=== PATIENT | female | born 1950 | race American Indian/Alaskan Native ===

== ENCOUNTER 2016-12-16 09:38 | Outpatient (CLI) | payer BC, MEDICARE ==
--- NOTE | 2016-12-17 09:51 | Mammography Report ---
BILATERAL DIGITAL SCREENING MAMMOGRAM WITH CAD, BILATERAL DIGITAL DIAGNOSTIC MAMMOGRAM and BILATERAL BREAST ULTRASOUND: 12/16/16 09:38:00 CLINICAL: The patient presented with an order for a screening mammogram. The screening examination was reviewed and it was determined that additional mammographic views and bilateral breast ultrasound were indicated. The patient also reported feeling a lump in her upper outer right breast. COMPARISON:None. FINDINGS: The breasts are heterogeneously dense, which may obscure small masses. Scattered bilateral calcifications with benign morphology. Bilateral asymmetries are identified on the screening views. Additional mammographic views including a left lateral and bilateral spot compression views were performed. An irregular right upper outer mass persists on spot compression and measures approximately 4.9 x 2.7 x 3.5 cm. An irregular right inner mass persists on spot compression and measures approximately 1.5 x 0.8 x 1.4 cm. An irregular left outer asymmetry persists on spot compression but there is no correlate on MLO or lateral views. Ultrasound of the right breast (including all four quadrants and the retroareolar area) was performed and demonstrated an irregular solid hypoechoic mass 9 to 11 o'clock 7 cm from the nipple measuring 4.3 x 3.4 x 1.8 cm. It correlates with the mammographic mass. An irregular shadowing hypoechoic solid mass at 1:30 o'clock 9 cm from the nipple measures 9 x 9 x 7 mm and correlates with a mammographic mass. Ultrasound of the retroareolar area demonstrated numerous dilated ducts with intraductal masses. Ultrasound of the right axilla was treated and enlarged lymph node with minimal central fat measuring 3.6 x 1.5 x 2.2 cm. Ultrasound of the left breast (including all four quadrants and the retroareolar area) was performed and demonstrated no solid mass. An oval slightly irregular cyst at 3 o'clock 4 cm from the nipple measures 1.0 x 0.9 x 0.4 cm and correlates with the outer mammographic asymmetry. IMPRESSION: 1. Multiple highly suspicious right breast masses with a dominant 4.3 cm upper outer mass, a 9 mm upper inner mass, and numerous suspicious intraductal masses. The pattern is suspicious for multicentric breast cancer with a EIC of (extensive intraductal component). 2. A suspicious right axillary lymph node. 3. A benign left breast cyst at 3 o'clock and no suspicious finding in the left breast. BI-RADS CATEGORY: 5 - - Highly Suggestive of Malignancy RECOMMENDATION: Ultrasound-guided needle core biopsy of the dominant right breast mass and ultrasound guided needle core biopsy of the suspicious right axillary lymph node. I discussed the findings and the recommendation for needle core biopsy with the patient at the time of the examination. ACR BI-RADS MAMMOGRAPHIC CODES: 0 = Needs additional imaging evaluation; 1 = Negative; 2 = Benign; 3 = Probably benign; 4 = Suspicious; 5 = Malignant; 6 = Known biopsy-proven malignancy COMMENT: 1. Dense breast tissue, i.e., adenosis, fibrocystic changes, etc., may obscure an underlying neoplasm. 2. Approximately 10% of cancers are not detected with mammography. 3. A negative mammography report should not delay biopsy if a clinically suspicious mass is present. COMMENT: Patient follow-up letters are generated via our [employer] application.
== END 2016-12-16 09:39 | disposition home or self-care (01) ==
LOC: MAMMO 09:38
PROVIDERS: ATTEND Internal Medicine
DX: Z12.31 Encounter for screening mammogram for malignant neoplasm of breast (principal); N60.02 Solitary cyst of left breast; N63 Unspecified lump in breast; I11.0 Hypertensive heart disease with heart failure; I50.9 Heart failure, unspecified; F17.200 Nicotine dependence, unspecified, uncomplicated
CPT/HCPCS: 76641; G0202; G0204; 77066; 77067

== ENCOUNTER 2016-12-25 13:07 | Outpatient (CLI) | payer BC, MEDICARE ==
--- NOTE | 2016-12-25 15:09 | Mammography Report ---
RIGHT DIGITAL DIAGNOSTIC MAMMOGRAM: 12/25/16 13:07:00 CLINICAL: For clip placement immediately status post ultrasound biopsy. COMPARISON:12/16/16 FINDINGS: A biopsy clip is now identified within the upper outer mass. IMPRESSION: Concordant clip placement status post ultrasound biopsy. BI-RADS CATEGORY: 5 - - Highly Suggestive of Malignancy Pathology pending.
--- NOTE | 2016-12-25 16:00 | Ultrasound Report ---
VACUUM ASSISTED ULTRASOUND BIOPSY WITH CLIP PLACEMENT RIGHT BREAST AND ULTRASOUND GUIDED NEEDLE CORE BIOPSY OF A RIGHT AXILLARY LYMPH NODE : 12/25/16 13:07:00 CLINICAL: Right breast mass and a suspicious right axillary lymph node. COMPARISON :12/16/16 mammogram and right breast ultrasound. FINDINGS: The procedure was explained to the patient and informed consent was obtained. Ultrasound demonstrated the previously described mass and abnormal right axillary lymph node.. The skin was prepped with Betadine and anesthetized with 1% lidocaine. Vacuum-assisted needle core biopsy was performed through a small dermatotomy using ultrasound guidance, 2% lidocaine with epinephrine for deep anesthesia and a 13 gauge Mammotome Elite biopsy probe. Multiple cores were obtained and placed in formalin. A localizer clip was deployed within the lesion. The skin in the axilla was prepped with Betadine and anesthetized with 1% lidocaine. Ultrasound guided needle core biopsy of the abnormal lymph node was performed through a small dermatotomy using 2% lidocaine with epinephrine for deep anesthesia and a 18-gauge Achieve biopsy device. 2 samples were obtained and placed in formalin. A localizer clip was deployed within the lymph node. Hemostasis was obtained at both sites with minimal pressure and sterile dressings were applied. The patient tolerated the procedure well and there were no apparent complications. She was discharged in good condition and was given instructions for wound care and followup. IMPRESSION: Uncomplicated vacuum-assisted ultrasound guided core biopsy of a right breast mass and uncomplicated ultrasound-guided needle core biopsy of a suspicious right axillary lymph node.
== END 2016-12-25 13:08 | disposition home or self-care (01) ==
LOC: SPVWC 13:07
PROVIDERS: ATTEND Internal Medicine
DX: N63 Unspecified lump in breast (principal); R92.2 Inconclusive mammogram; F17.200 Nicotine dependence, unspecified, uncomplicated
CPT/HCPCS: 19083; 38525; 88305; A4648; G0206; 88361

== ENCOUNTER 2017-01-28 05:48 | Day surgery (SDC) | payer BC, MEDICARE ==
[2017-01-28] MEDS ORDERED: PEPCID PO NR (06:00)
[2017-01-28] MEDS ORDERED: NACL 0.9% 1000 ML 1,000 ML IV SCH (06:00)
[2017-01-28] MEDS ORDERED: NACL BACTERIOSTATIC INFILTRATI ONE (06:48)
--- NOTE | 2017-01-28 07:05 | Anesthesia Consultation ---
Anesthesia Consult and Med Hx Date of service: 01/28/17 - Airway Anesthetic Teeth Evaluation: Good ROM Head & Neck: Adequate Mental/Hyoid Distance: Adequate Mallampati Class: Class II Intubation Access Assessment: Probably Good - Pulmonary Exam CTA: Yes - Cardiac Exam Cardiac Exam: RRR - Pre-Operative Health Status ASA Pre-Surgery Classification: ASA3 Proposed Anesthetic Plan: General - Pre-Anesthesia Comment Pre-Anesthesia Comments: Pt had Echo 01/27/17. Per patient report, Echo was good. She is asymptomatic from cardiac standpoint. - Pulmonary Hx Smoking: Yes (51 years, 1/2 ppd) Hx Asthma: Yes (seasonal allergies) Hx Pneumonia: Yes (2 years ago) - Cardiovascular System Hx Hypertension: Yes (10 years) Hx Heart Attack/AMI: Yes (2 years ago( x2)) - Central Nervous System Hx Back Pain: Yes Hx Psychiatric Problems: Yes - Hematic Hx Anemia: No Hx Sickle Cell Disease: No - Other Systems Hx Alcohol Use: No Hx Substance Use: No Hx Cancer: Yes (Right breast)
[2017-01-28] MEDS ORDERED: DILAUDID IV PRN ×2 (07:06)
--- NOTE | 2017-01-28 07:06 | Anesthesia Day of Surgery ---
Anesthesia Day of Surgery - Day of Surgery Patient Examined: Yes Patient H&P Reviewed: Yes Patient is NPO: Yes
[2017-01-28 07:27] LABS: Hematocrit 36.9 % (30.3-42.9); Hemoglobin 12.2 gm/dl (10.1-14.3)
[2017-01-28] MEDS ORDERED: HEPARIN 10,000 UNITS/10 ML ONE (07:32)
[2017-01-28] MEDS ORDERED: XYLOCAINE 1% 20 mL ONE (07:33)
[2017-01-28] MEDS ORDERED: MARCAINE 0.25% INFILTRATI ONE ×2 (07:33→08:35)
[2017-01-28] MEDS ORDERED: NACL 0.9% 100 ML ONE (07:33)
--- NOTE | 2017-01-28 07:41 | Short Stay Summary ---
<CELE WALTON - Last Filed: 01/28/17 07:40> Short Stay Documentation Date of service: 01/28/17 Narrative H&P: 66 yo F with breast cancer presents for port placement to initiate chemotherapy. No complaints. - History Principal diagnosis: breast cancer H&P: obtained from office - Allergies and Medications Current Medications: Allergies Penicillins Allergy (Verified 01/26/17 10:33) Swelling Home Medications Medication Instructions Recorded Confirmed Last Taken Type Cephalexin [Keflex] 500 mg PO Q12HR #20 cap 12/04/15 01/28/17 3 Days Ago Rx Ibuprofen [Motrin 600 MG tab] 600 mg PO Q8H PRN #20 tablet 12/04/15 01/28/17 1 Week Ago Rx Losartan/Hydrochlorothiazide 1 tab PO QDAY 01/28/17 01/28/17 01/28/17 04:00 History [Hyzaar 100-25 TAB] Active Medications Famotidine (Pepcid) 20 mg PO PREOP NR Stop: 01/28/17 23:59 Last Admin: 01/28/17 06:49 Dose: 20 mg Hydromorphone HCl (Dilaudid) 0.5 mg IV Q10MIN PRN PRN Reason: Pain , Severe (7-10) Stop: 01/28/17 12:00 Hydromorphone HCl (Dilaudid) 0.25 mg IV Q10MIN PRN PRN Reason: Pain, Moderate (4-6) Stop: 01/28/17 12:00 Sodium Chloride (Nacl 0.9% 1000 Ml) 1,000 mls @ 75 mls/hr IV DIRECT FABIOLA Last Admin: 01/28/17 06:55 Dose: 75 mls/hr Vancomycin HCl (Vancomycin/Ns 1 Gm/250 Ml) 1 gm in 250 mls @ 167.007 mls/hr IV PREOP NR PRN Reason: Protocol Stop: 01/28/17 12:00 Last Admin: 01/28/17 07:35 Dose: 167.007 mls/hr Ondansetron HCl (Zofran) 4 mg IV ONCE PRN PRN Reason: Nausea And Vomiting Stop: 01/28/17 08:01 Oxycodone/Acetaminophen (Percocet 5/325) 1 tab PO ONCE PRN PRN Reason: Pain, Moderate (4-6) Stop: 01/28/17 08:01 - Brief post op/procedure progress note Date of procedure: 01/28/17 Pre-op diagnosis: breast cancer Post-op diagnosis: same Procedure: port placement Anesthesia: MAGGYA Surgeon: BELIA CONSTANTINO Tear Down Man: CELE WALTON Pathology: none - Disposition Condition at discharge: Good Disposition: DC-01 TO HOME OR SELFCARE Short Stay Discharge Plan Follow up with: BELIA CONSTANTINO MD [Staff Physician] - 7 Days <BELIA CONSTANTINO - Last Filed: 01/28/17 09:10> Short Stay Documentation - Allergies and Medications Current Medications: Allergies Penicillins Allergy (Verified 01/26/17 10:33) Swelling Home Medications Medication Instructions Recorded Confirmed Last Taken Type Cephalexin [Keflex] 500 mg PO Q12HR #20 cap 12/04/15 01/28/17 3 Days Ago Rx Ibuprofen [Motrin 600 MG tab] 600 mg PO Q8H PRN #20 tablet 12/04/15 01/28/17 1 Week Ago Rx Losartan/Hydrochlorothiazide 1 tab PO QDAY 01/28/17 01/28/17 01/28/17 04:00 History [Hyzaar 100-25 TAB] Active Medications Famotidine (Pepcid) 20 mg PO PREOP NR Stop: 01/28/17 23:59 Last Admin: 01/28/17 06:49 Dose: 20 mg Hydromorphone HCl (Dilaudid) 0.5 mg IV Q10MIN PRN PRN Reason: Pain , Severe (7-10) Stop: 01/28/17 12:00 Hydromorphone HCl (Dilaudid) 0.25 mg IV Q10MIN PRN PRN Reason: Pain, Moderate (4-6) Stop: 01/28/17 12:00 Sodium Chloride (Nacl 0.9% 1000 Ml) 1,000 mls @ 75 mls/hr IV DIRECT FABIOLA Last Admin: 01/28/17 06:55 Dose: 75 mls/hr Vancomycin HCl (Vancomycin/Ns 1 Gm/250 Ml) 1 gm in 250 mls @ 167.007 mls/hr IV PREOP NR PRN Reason: Protocol Stop: 01/28/17 12:00 Last Admin: 01/28/17 07:35 Dose: 167.007 mls/hr - Brief post op/procedure progress note Anesthesia: MAC Findings: Left port in good placement and confirmed under fluorosocopy guidance Condition: stable Short Stay Discharge Plan Activity: other (no heavy lifting) Diet: regular Wound: other (keep incisions clean and dry; may shower in 24 hours; no baths, pools or lakes; do not rub or scrub incision)
[2017-01-28] MEDS ORDERED: VANCOMYCIN/NS 1 GM/250 ML 1 GM/250 ML BAG IV NR (08:00)
[2017-01-28] MEDS ORDERED: ZOFRAN IV PRN (08:00)
[2017-01-28] MEDS ORDERED: PERCOCET 5/325 PO PRN (08:00)
[2017-01-28] MEDS ORDERED: HEPARIN 10,000 UNITS/10 ML IV ONE (08:33)
[2017-01-28] MEDS ORDERED: NACL 0.9% IR ONE (08:33)
[2017-01-28] MEDS ORDERED: XYLOCAINE 1% 20 mL INFILTRATI ONE (08:35)
[2017-01-28] MEDS ORDERED: NACL 0.9% IV ONE (08:35)
--- NOTE | 2017-01-28 09:35 | Operative Report ---
Operative Report Operative Report: Date of Service: January 28, 2017 Preoperative diagnosis: Right breast cancer of the upper outer quadrant in need of central venous access Postoperative diagnosis: Same Procedure: Left port placement under fluoroscopy guidance Surgeon: Zee García M.D. Asst.: Dr. Cerda Anesthesia: Local Mac Findings: Left port placement in good position with placement confirmed under fluoroscopy guidance Complications: None Estimated blood loss: Minimal Disposition: PACU in good condition Indications for operative procedure: This is a 66-year-old lady with advanced stage right breast cancer the upper outer quadrant. Recommendations are to proceed with neoadjuvant chemotherapy. Patient in need of central venous access to start chemotherapy. Procedure in detail: The patient was taken to the operating room and was laid supine. Local Mac anesthesia was administered. Bilateral neck and chest were prepped and draped in the normal sterile operative fashion. Timeout was performed. Sternal notch including left pectoral groove was identified. The area for central venous access was anesthetized with 1% lidocaine. The left sublcavian vein was accessed with the syringe and needle attached and good backflow of blood was noted. Wire was introduced through the needle. Placement of wire was confirmed under fluoroscopy guidance. A skin incision was then made at wire insertion site with a 15 blade knife after the skin was appropriately anesthetized. Bovie cautery was used to create the pocket for port placement. Dilator and sheath were then threaded through the wire in Seldinger technique. The wire and dilator were then removed. The catheter was then inserted through the sheath without incident. The catheter was tested with good backflow of blood and placement confirmed under flouroscopy. The sheath was then peeled back. The catheter was cut to size. The catheter was then attached to the port. The port was placed in the appropriate pocket that was created. The port was tested with good backflow of blood noted. Fluoroscopy was performed with port in good placement and no concerns for a pneumothorax. The port was sutured into place. The port was flushed with heparin. The skin incision was then approximated and closed using interrupted 3- 0 Vicryl and then closed using a running 4-0 Monocryl and skin affix. Upright chest x-ray performed in operating room with port in good placement and no signs of pneumothorax. She tolerated surgery very well and was awakened from anesthesia and transported to PACU in good condition.
--- NOTE | 2017-01-28 09:40 | Fluoroscopy Report ---
AP CHEST: HISTORY: Breast cancer There is mild cardiomegaly and borderline pulmonary venous congestion. The lungs are generally clear. No evidence for pneumonia, pleural effusion or pneumothorax. No large pulmonary mass. Left Ydxroy-c-Dykd terminates in the superior right atrium. The bony structures are grossly intact. IMPRESSION: Cardiomegaly.
[2017-01-28 13:09] VITALS: BP 147/77
--- NOTE | 2017-01-28 18:39 | Post Anesthesia Evaluation ---
- Post Anesthesia Evaluation Patient Participated: Yes Airway Patent: Yes Stable Respiratory Function: Yes Nausea/Vomiting: No Temp > 96.8F: Yes Pain Manageable: Yes Adequeate Hydration: Yes Anesthesia Complications: No Block Receding Appropriately: Not Applicable Patient on Ventilator: No
== END 2017-01-28 10:04 | disposition home or self-care (01) ==
LOC: OR 05:48
PROVIDERS: ATTEND Surgery
DX: C50.411 Malignant neoplasm of upper-outer quadrant of right female breast (principal); I25.2 Old myocardial infarction; I10 Essential (primary) hypertension; F17.210 Nicotine dependence, cigarettes, uncomplicated; K21.9 Gastro-esophageal reflux disease without esophagitis; J45.909 Unspecified asthma, uncomplicated; Z88.0 Allergy status to penicillin; Z87.01 Personal history of pneumonia (recurrent); Z79.899 Other long term (current) drug therapy
CPT/HCPCS: 36415; 36561; 77001; 84132; 85014; 85018; C1788; J1644; J3370; J7030

== ENCOUNTER 2017-01-29 13:29 | Outpatient (CLI) | payer BC, MEDICARE ==
[~2017-01-29 13:29] MED LIST: DILAUDID ONE; DIPRIVAN 10 MG/ML IV ONE; VERSED ONE; XYLOCAINE MPF 2% ONE
--- NOTE | 2017-02-02 07:43 | PET Report ---
PET SB TO MT initial: HISTORY: Initial staging of right breast cancer. TECHNIQUE: 13.7 millicuries F-18 FDG was administered intravenously. Noncontrast CT images and PET images were obtained from the skull base to the proximal thighs. Fused images were reviewed on a workstation. The patient's blood glucose level measured 81. COMPARISON: No relevant comparison at this facility. FINDINGS: BRAIN: physiologic FDG uptake in the imaged brain. NECK: The thyroid gland appears mildly enlarged without focal mass or nodule. There is diffuse increased uptake throughout the thyroid gland with Max SUV measuring up to 8.8. CHEST WALL: A lobulated right breast mass measures 4.8 x 2.7 cm in axial plane. Max SUV measures 10.6. A 2.8 cm right axillary lymph node demonstrates a max SUV of 8.1. A 2.1 cm right subpectoral lymph node demonstrates a max SUV of 8.2. There is a normal sized right axillary lymph node which demonstrates a max SUV of 4.3. MEDIASTINUM: physiologic FDG uptake. There is mild to moderate cardiomegaly and small pericardial effusion. LUNGS: physiologic FDG uptake. PLEURA/PERICARDIUM: physiologic FDG uptake. THORACIC LYMPH NODES: physiologic FDG uptake. HEPATOBILIARY: physiologic FDG uptake. Mean liver SUV measures 3.7. PANCREAS: physiologic FDG uptake. SPLEEN: physiologic FDG uptake. ADRENAL GLANDS: physiologic FDG uptake. KIDNEYS/RENAL COLLECTING SYSTEMS: physiologic FDG uptake. BOWEL/MESENTERY: physiologic FDG uptake. Moderate atherosclerotic disease is noted in the aorta. The aorta is dilated up to 4 cm in diameter just above the aortic bifurcation. PELVIC VISCERA: physiologic FDG uptake. Hysterectomy changes are suspected. ABDOMINAL/PELVIC LYMPH NODES: physiologic FDG uptake. MUSCULOSKELETAL: physiologic FDG uptake. Posterior fusion changes in the lower lumbar spine are noted. IMPRESSION: Hypermetabolic right breast mass and at least 3 right axillary/subpectoral hypermetabolic lymph nodes as outlined above. No evidence for pulmonary, hepatic or osseous metastasis. Diffuse enlargement of the thyroid gland with increased uptake which is thought to be benign in nature.
== END 2017-01-29 13:30 | disposition home or self-care (01) ==
LOC: PET 13:29
PROVIDERS: ATTEND Internal Medicine Hematology & Oncology
DX: C50.411 Malignant neoplasm of upper-outer quadrant of right female breast (principal); E04.9 Nontoxic goiter, unspecified; N63.0 Unspecified lump in unspecified breast; I51.7 Cardiomegaly; I31.3 Pericardial effusion (noninflammatory); I70.0 Atherosclerosis of aorta; Z90.710 Acquired absence of both cervix and uterus; Z79.899 Other long term (current) drug therapy
CPT/HCPCS: 78815; 82962; A9552; J1170; J2250; J2704

== ENCOUNTER 2017-02-06 13:24 | Outpatient (CLI) | payer BC ==
--- NOTE | 2017-02-07 13:59 | Magnetic Resonance Report ---
BILATERAL BREAST MRI WITHOUT AND WITH CONTRAST: 02/06/17 13:24:00 CLINICAL: Recently diagnosed right breast cancer. COMPARISON:12/16/16 mammograms and bilateral breast ultrasound. TECHNIQUE: Axial 1.0-mm T1 without, axial high resolution 2.0-mm T2 and axial 1.0-mm dynamic Vibrant high-resolution postcontrast T1 fat saturation sequences on a 1.5 Rupa magnet. The examination was performed with an 8 channel dedicated [employer] breast coil. Post processing with CAD and subtraction was performed on an [employer] workstation. 17.0 cc of Multihance was injected without incident for the contrast portion of the exam. Consent was obtained prior to the administration of the contrast. FINDINGS: Right: Mild background parenchymal enhancement. The known cancer is an irregularly shaped enhancing mass in the upper-outer quadrant 10.2 cm from the nipple and 5.7 cm from the chest wall. It measures 4.8 x 3.3 x 3.1 cm and demonstrates heterogeneous enhancement with mixed kinetics, 152% peak enhancement and 32% type III washout. A second highly suspicious mass is identified in the upper outer quadrant 8.6 cm from the nipple cephalad to the known cancer. It measures 1.2 x 0.9 x 0.8 cm and demonstrates heterogeneous enhancement with mixed kinetics, 171% peak enhancement and 4% type III washout. A third highly suspicious mass is identified in the upper inner quadrant 12.6 cm from the nipple and 3.8 cm from the chest wall. It measures 1.4 x 1.1 x 0.9 cm and demonstrates heterogeneous enhancement with mixed kinetics, 160% peak enhancement and 10% type III washout. Moderate retroareolar ductal ectasia but no abnormal enhancement in the area of the dilated ducts. A single abnormal right II axillary lymph node measures 2.4 cm and contains a biopsy clip. No other suspicious lymph nodes. Left: Mild background parenchymal enhancement. A single focus of non-Mass enhancement in the lower-outer quadrant 6.4 cm from the nipple and 10.3 cm from the chest wall measures 4.1 x 3.9 x 3.0 mm. It demonstrates heterogeneous enhancement with mixed kinetics, 185% peak enhancement and 18% type III washout. No other lesions of the left breast. No suspicious left lymph nodes. IMPRESSION: 1. Multicentric right breast cancer with a dominant 4.8 cm upper-outer quadrant mass. 2. A single biopsy-proven right axillary elisha metastasis. 3. Suspicious focal non-Mass enhancement of the left breast which would be amenable to MRI guided biopsy. RIGHT BI-RADS 6 -- Known Cancer LEFT BI-RADS 4 -- Suspicious
== END 2017-02-06 13:25 | disposition home or self-care (01) ==
LOC: SPVIMAG 13:24
PROVIDERS: ATTEND Surgery
DX: C50.411 Malignant neoplasm of upper-outer quadrant of right female breast (principal); N60.41 Mammary duct ectasia of right breast; N63.12 Unspecified lump in the right breast, upper inner quadrant; N63.23 Unspecified lump in the left breast, lower outer quadrant
CPT/HCPCS: 0159T; A9577; C8908; 77059

== ENCOUNTER 2017-03-18 15:59 | Outpatient (CLI) | payer BC ==
--- NOTE | 2017-03-18 16:32 | XRay Report ---
XRAY CHEST TWO VIEWS: 03/18/17 15:59:00 CLINICAL: Cough and shortness of breath. Right breast cancer diagnosed in November 2016. COMPARISON: 11/28/16 FINDINGS: Stable cardiomegaly with redistribution of pulmonary blood flow to the upper lobes. The lungs are normally expanded and clear. No air space disease or pleural effusion.A left Ptiekm-o-Khpc tip is in the distal SVC and is unchanged compared to the prior exam. Degenerative changes in the spine. IMPRESSION: No acute cardiopulmonary process.Stable cardiomegaly and pulmonary venous hypertension. No pulmonary edema or pneumonia. No evidence of metastasis.
== END 2017-03-18 16:00 | disposition home or self-care (01) ==
LOC: SPVIMAG 15:59
PROVIDERS: ATTEND Nurse Practitioner
DX: I51.7 Cardiomegaly (principal); I27.20 Pulmonary hypertension, unspecified; C50.411 Malignant neoplasm of upper-outer quadrant of right female breast; M47.894 Other spondylosis, thoracic region
CPT/HCPCS: 71020

== ENCOUNTER 2017-06-02 08:46 | Outpatient (CLI) | payer BC ==
--- NOTE | 2017-06-02 09:51 | Mammography Report ---
RIGHT DIGITAL DIAGNOSTIC MAMMOGRAM : 06/02/17 08:46:00 CLINICAL: Followup right breast cancer after chemotherapy. COMPARISON:12/25/16 FINDINGS: A residual irregular mass in the upper outer quadrant with partially ill-defined margins. The mass is smaller. Assessment of diameter on the MLO view is 2.3 x 1.8 cm compared to 3.5 x 2.6 cm. Margins are less well-defined on CC views.Moderate skin thickening of the breast. IMPRESSION: Partial mammographic response to chemotherapy. BI-RADS CATEGORY: 6--Known Cancer ACR BI-RADS MAMMOGRAPHIC CODES: 0 = Needs additional imaging evaluation; 1 = Negative; 2 = Benign; 3 = Probably benign; 4 = Suspicious; 5 = Malignant; 6 = Known biopsy-proven malignancy COMMENT: 1. Dense breast tissue, i.e., adenosis, fibrocystic changes, etc., may obscure an underlying neoplasm. 2. Approximately 10% of cancers are not detected with mammography. 3. A negative mammography report should not delay biopsy if a clinically suspicious mass is present. COMMENT: Patient follow-up letters are generated by our [employer] application.
== END 2017-06-02 08:47 | disposition home or self-care (01) ==
LOC: SPVWC 08:46
PROVIDERS: ATTEND Surgery
DX: C50.411 Malignant neoplasm of upper-outer quadrant of right female breast (principal)

== ENCOUNTER 2017-07-23 05:48 | Outpatient (CLI) | payer BC, MEDICARE ==
--- NOTE | 2017-07-23 09:14 | PET Report ---
PET SB TO MT SUBSEQUENT: HISTORY: Restaging of right breast cancer. TECHNIQUE: 12.6 millicuries F-18 FDG was administered intravenously. Noncontrast CT images and PET images were obtained from the skull base to the proximal thighs. Fused images were reviewed on a workstation. The patient's blood glucose level measured 108. COMPARISON: 01/29/17. FINDINGS: BRAIN: physiologic FDG uptake in the imaged brain. NECK: physiologic FDG uptake. CHEST WALL: The mass in the lateral right breast has decreased from 4.8 x 2.7 cm to 2.7 x 2.1 cm. Max SUV has decreased from 10.6 to 4.3. No new areas of uptake in the right breast are identified. MEDIASTINUM: physiologic FDG uptake. LUNGS: physiologic FDG uptake. PLEURA/PERICARDIUM: physiologic FDG uptake. THORACIC LYMPH NODES: The previously described right axillary/right subpectoral lymph nodes have resolved measuring less than 1 cm in greatest diameter. Hypermetabolic activity has also resolved. HEPATOBILIARY: physiologic FDG uptake. Mean liver SUV measures 3.6 as opposed to 3.7 on the previous exam. PANCREAS: physiologic FDG uptake. SPLEEN: physiologic FDG uptake. ADRENAL GLANDS: physiologic FDG uptake. KIDNEYS/RENAL COLLECTING SYSTEMS: physiologic FDG uptake. BOWEL/MESENTERY: physiologic FDG uptake. PELVIC VISCERA: physiologic FDG uptake. ABDOMINAL/PELVIC LYMPH NODES: physiologic FDG uptake. MUSCULOSKELETAL: physiologic FDG uptake. IMPRESSION: A positive response to therapy is demonstrated since 01/29/17 exam. The right breast mass has decreased in size and hypermetabolic activity as outlined above. Right axillary/subpectoral lymph nodes have resolved and are now within normal limits. No new areas of disease are identified.
== END 2017-07-23 05:49 | disposition home or self-care (01) ==
LOC: PET 05:48
PROVIDERS: ATTEND Surgery
DX: C50.411 Malignant neoplasm of upper-outer quadrant of right female breast (principal); F17.200 Nicotine dependence, unspecified, uncomplicated; Z79.899 Other long term (current) drug therapy
CPT/HCPCS: 78815; 82962; A9552

== ENCOUNTER 2017-08-10 08:49 | Day surgery (SDC) | payer BC, MEDICARE ==
[2017-08-10 10:12] LABS: Basophils % (Auto) 0.8 % (0.0-1.8); Eosinophils # (Auto) 0.1 K/mm3 (0.0-0.4); Eosinophils % (Auto) 2.5 % (0.0-4.3); Hematocrit 30.8 % (30.3-42.9); Hemoglobin 10.1 gm/dl (10.1-14.3); Lymphocytes % (Auto) 33.6 % (13.4-35.0); Mean Corpuscular HGB Conc 33 % (30-34); Mean Corpuscular Hemoglobin 29 pg (28-32); Mean Corpuscular Volume 88 fl (79-97); Monocytes # (Auto) 0.2 K/mm3 (0.0-0.8); Monocytes % (Auto) 7.6 % (0.0-7.3); Platelet Count 194 K/mm3 (140-440); Red Blood Count 3.48 M/mm3 (3.65-5.03); Red Cell Distribution Width 18.4 % (13.2-15.2)
[2017-08-10 10:31] VITALS: BP 153/71
== END 2017-08-10 08:50 | disposition home or self-care (01) ==
LOC: OR 08:49
PROVIDERS: ATTEND Surgery
DX: C50.911 Malignant neoplasm of unspecified site of right female breast (principal); I10 Essential (primary) hypertension; I25.2 Old myocardial infarction; F17.210 Nicotine dependence, cigarettes, uncomplicated; K21.9 Gastro-esophageal reflux disease without esophagitis; Z53.8 Procedure and treatment not carried out for other reasons
CPT/HCPCS: 36415; 85025

== ENCOUNTER 2017-08-14 12:21 | Outpatient (CLI) | payer BC ==
[2017-08-14 12:36] LABS: Basophils % (Auto) 0.8 % (0.0-1.8); Eosinophils # (Auto) 0.1 K/mm3 (0.0-0.4); Eosinophils % (Auto) 2.8 % (0.0-4.3); Hematocrit 32.2 % (30.3-42.9); Hemoglobin 10.3 gm/dl (10.1-14.3); Lymphocytes # (Auto) 1.1 K/mm3 (1.2-5.4); Lymphocytes % (Auto) 30.4 % (13.4-35.0); Mean Corpuscular HGB Conc 32 % (30-34); Mean Corpuscular Hemoglobin 29 pg (28-32); Mean Corpuscular Volume 89 fl (79-97); Monocytes # (Auto) 0.3 K/mm3 (0.0-0.8); Monocytes % (Auto) 8.8 % (0.0-7.3); Platelet Count 212 K/mm3 (140-440); Red Cell Distribution Width 18.2 % (13.2-15.2)
== END 2017-08-14 12:22 | disposition home or self-care (01) ==
LOC: LAB 12:21
PROVIDERS: ATTEND Surgery
DX: C50.411 Malignant neoplasm of upper-outer quadrant of right female breast (principal); I11.0 Hypertensive heart disease with heart failure; I50.9 Heart failure, unspecified; E78.00 Pure hypercholesterolemia, unspecified; F32.9 Major depressive disorder, single episode, unspecified; F17.200 Nicotine dependence, unspecified, uncomplicated; Z79.899 Other long term (current) drug therapy
CPT/HCPCS: 36415; 85025

== ENCOUNTER 2017-08-21 06:04 | Observation (INO) | payer BC ==
[~2017-08-21 06:04] MED LIST changes: -DILAUDID ONE; -DIPRIVAN 10 MG/ML IV ONE; +SUBLIMAZE ONE; -XYLOCAINE MPF 2% ONE
[2017-08-21] MEDS ORDERED: NACL BACTERIOSTATIC INFILTRATI ONE (06:31)
[2017-08-21] MEDS ORDERED: NAROPIN O.5% ONE (07:04)
[2017-08-21] MEDS ORDERED: XYLOCAINE 1% 20 mL ONE ×2 (07:05→07:29)
[2017-08-21] MEDS ORDERED: VANCOMYCIN/NS 1 GM/250 ML 1 GM/250 ML BAG IV SCH (07:07)
[2017-08-21] MEDS ORDERED: NACL 0.9% 1000 ML 1,000 ML IV SCH (07:15)
--- NOTE | 2017-08-21 07:19 | Anesthesia Day of Surgery ---
Anesthesia Day of Surgery - Day of Surgery Patient Examined: Yes Patient H&P Reviewed: Yes Patient is NPO: Yes
--- NOTE | 2017-08-21 07:19 | Anesthesia Consultation ---
Anesthesia Consult and Med Hx Date of service: 08/21/17 - Airway Anesthetic Teeth Evaluation: Good ROM Head & Neck: Adequate Mental/Hyoid Distance: Adequate Mallampati Class: Class IV Intubation Access Assessment: Probably Good - Pulmonary Exam CTA: Yes - Cardiac Exam Cardiac Exam: RRR - Pre-Operative Health Status ASA Pre-Surgery Classification: ASA2 Proposed Anesthetic Plan: General - Pulmonary Hx Smoking: Yes (4CIG/DAY FOR 51 YEARS) Hx Asthma: Yes (seasonal allergies) - Cardiovascular System Hx Hypertension: Yes (2006) Hx Heart Attack/AMI: Yes (2014 (X2)) - Central Nervous System Hx Back Pain: Yes Hx Psychiatric Problems: Yes - Other Systems Hx Alcohol Use: No Hx Substance Use: No Hx Cancer: Yes
[2017-08-21] MEDS ORDERED: MARCAINE 0.5% 30 ML INFILTRATI ONE (07:27)
[2017-08-21] MEDS ORDERED: SUBLIMAZE ONE ×2 (07:28→07:32)
[2017-08-21] MEDS ORDERED: VANCOMYCIN/0.45 NS 1 GM/250 ML 1 GM/250 ML BAG IV NR (07:30)
[2017-08-21] MEDS ORDERED: DIPRIVAN 10 MG/ML IV ONE (07:31)
[2017-08-21] MEDS ORDERED: METHYLENE BLUE ONE (07:47)
[2017-08-21] MEDS ORDERED: DILAUDID IV PRN (08:00)
[2017-08-21] MEDS ORDERED: NARCAN 0.4 MG/1 ML IV PRN (08:00)
[2017-08-21] MEDS ORDERED: TORADOL IV PRN (08:00)
[2017-08-21] MEDS ORDERED: CLEOCIN 600 MG/50 mL 600 MG/50 ML BAG IV NR (08:00)
[2017-08-21] MEDS ORDERED: ZOFRAN IV PRN ×2 (08:00→13:41)
[2017-08-21] MEDS ORDERED: DEMEROL IV PRN (08:00)
[2017-08-21] MEDS ORDERED: ZOFRAN IV NR (08:00)
[2017-08-21] MEDS ORDERED: VERSED IV NR (08:00)
--- NOTE | 2017-08-21 08:10 | Short Stay Summary ---
Short Stay Documentation Date of service: 08/21/17 - History H&P: obtained from office - Allergies and Medications Current Medications: Allergies Penicillins Allergy (Verified 08/19/17 14:45) Swelling Home Medications Medication Instructions Recorded Confirmed Last Taken Type Ibuprofen [Motrin 600 MG tab] 600 mg PO Q8H PRN #20 tablet 12/04/15 08/21/17 Rx HYDROcodone/APAP 5-325 [[place] 1 each PO Q6HR PRN #30 tablet 01/28/17 08/21/17 Rx 5/325] Losartan/Hydrochlorothiazide 1 tab PO QDAY 01/28/17 08/21/17 08/21/17 04:00 History [Hyzaar 100-25 TAB] Aspirin [Aspir-Low] 81 mg PO DAILY 08/10/17 08/21/17 08/20/17 History Sertraline [Zoloft] 50 mg PO DAILY 08/10/17 08/21/17 08/20/17 History Active Medications Hydromorphone HCl (Dilaudid) 0.5 mg IV Q10MIN PRN PRN Reason: Pain , Severe (7-10) Stop: 08/21/17 13:00 Hydromorphone HCl (Dilaudid) 0.25 mg IV Q10MIN PRN PRN Reason: Pain, Moderate (4-6) Stop: 08/21/17 14:00 Sodium Chloride (Nacl 0.9% 1000 Ml) 1,000 mls @ 100 mls/hr IV DIRECT FABIOLA Stop: 08/21/17 23:59 Last Admin: 08/21/17 07:26 Dose: 100 mls/hr Lactated Ringer's (Lactated Ringers) 1,000 mls @ 100 mls/hr IV DIRECT FABIOLA Vancomycin HCl (Vancomycin/0.45 Ns 1 Gm/250 Ml) 1 gm in 250 mls @ 167.007 mls/ hr IV PREOP NR Stop: 08/21/17 16:00 Last Admin: 08/21/17 07:34 Dose: 167.007 mls/hr Clindamycin HCl (Cleocin 600 Mg/50 Ml) 600 mg in 50 mls @ 100 mls/hr IV PREOP NR; Protocol Stop: 08/21/17 23:59 Ketorolac Tromethamine (Toradol) 30 mg IV ONCE PRN PRN Reason: Pain, Moderate (4-6) Stop: 08/21/17 13:00 Meperidine HCl (Demerol) 25 mg IV ONCE PRN PRN Reason: Shivering Stop: 08/21/17 13:00 Midazolam HCl (Versed) 2 mg IV PREOP NR Stop: 08/21/17 23:59 Naloxone HCl (Narcan 0.4 Mg/1 Ml) 0.1 mg IV Q2MIN PRN PRN Reason: Res Rate </= 8 or 02 SAT < 92% Ondansetron HCl (Zofran) 4 mg IV PREOP NR Stop: 08/21/17 12:00 Ondansetron HCl (Zofran) 4 mg IV ONCE PRN PRN Reason: Nausea And Vomiting Stop: 08/21/17 14:00 - Brief post op/procedure progress note Date of procedure: 08/21/17 Pre-op diagnosis: Right breast cancer of the upper outer quadrant Post-op diagnosis: same Procedure: Right total mastectomy with SLNB with axillary lymph node dissection and left total mastectomy Anesthesia: GETA Findings: Known right breast cancer mass at the 10/11:00 position 5-7 cm from the nipple; 2/3 SLNs positive for malignancy on frozen section and proceeded with right ALND Surgeon: BELIA CONSTANTINO Cupola Tender Helper: CELE WALTON Estimated blood loss: minimal Pathology: list (bilateral mastectomy, right SLNB) Specimen disposition: to lab Condition: stable - Disposition Condition at discharge: Good Disposition: DC/TX-02 SHRT-TRM GEN HOSP IP Short Stay Discharge Plan Activity: other (no heavy lifting) Diet: regular Wound: other (per plastic surgery) Follow up with: MEET OGDEN MD [Primary Care Provider] - 7 Days BELIA CONSTANTINO MD [Staff Physician] - 7 Days
--- NOTE | 2017-08-21 08:16 | Operative Report ---
Operative Report Operative Report: Date of Service: August 21, 2017 Preoperative diagnosis: Right breast cancer of the upper outer quadrant Postoperative diagnosis: Same Procedure: Left total mastectomy and right total mastectomy with sentinel lymph node biopsy followed by right axillary lymph node dissection Surgeon: Zee García M.D. Asst.: Autumn Lozoya MD Anesthesia: Gen. Findings: Right total mastectomy. 3 sentinel lymph nodes identified and 2 positive for malignancy on frozen section of pathology and proceeded with an axillary lymph node dissection Complications: None Drains: per plastic surgery Estimated blood loss: Minimal Disposition: PACU in good condition Indications for operative procedure: This is a 67-year-old lady with stage II right breast cancer of the upper outer quadrant, right breast mass at the 10:00 position 5-6 cm from the nipple, IDCA [id number] ER/UT/Her -2 positive. Recommendations were to proceed with right total mastectomy with SLNB and possible ALND and and patient wished to proceed with a prophylactic left total masectomy. Patient wished to proceed with plastic reconstructive surgery as well. Procedure in detail: Anesthesia placed a bilateral pectoral muscle block prior to going to the operating room. The patient was taken to the operating room and was placed supine. Gen. anesthesia was administered. The right nipple was injected with radioisotope and 1 cc of methylene blue dye with 1 cc of saline. Ultrasound was used and known right breast cancer at the 10:00 position 5-6 cm from the nipple. Bilateral breast were prepped and draped in the normal postoperative fashion. Timeout was performed. Typical mastectomy incision markings were made with right mastectomy marking to include known breast cancer at the 10:00 position. Attention was taken towards the left breast first. A skin incision was made with a 10 blade knife and dissection taken down to the subcutaneous tissues. First began raising of the superior flap to the level of the clavicle superiorly and posteriorly to the pectoralis muscle. Followed by raising of the medial flap to the level of the sternum and posteriorly to the pectoralis muscle. Followed by raising of the lateral flap to the level of the latissimus dorsi muscle and taken down posteriorly. Followed by raising of the inferior flap to the level of the inframammary fold taken posterior to the pectoralis muscle. The mastectomy/breast was removed from the pectoralis muscle without incident. The specimen was appropriately marked and sent to pathology. Hemostasis was obtained with the bovie cautery. Attention was taken towards the right breast. A gamma probe was inserted into the axilla to identify the sentinel lymph node location. A skin incision was made with a 10 blade knife and dissection taken down to the subcutaneous tissues. First began raising of the superior flap to the level of the clavicle superiorly and posteriorly to the pectoralis muscle. Followed by raising of the medial flap to the level of the sternum and posteriorly to the pectoralis muscle. Followed by raising of the lateral flap to the level of the latissimus dorsi muscle and taken down posteriorly. The gamma probe was inserted into the axillary fascia was opened. 3 sentinel lymph nodes were identified, all remaining counts were less than 10% of the highest SLN with blue dye noted as well within the nodes. Lymph nodes were sent to pathology with findings of 2/3 positive for malignancy noted on frozen section and one node with biopsy changes from prior lymph node biopsy. Then proceeded with raising of the inferior flap to the level of the inframammary fold taken posterior to the pectoralis muscle. The mastectomy/breast was removed from the pectoralis muscle without incident. The specimen was appropriately marked and sent to pathology. Attention was then take towards right axillary lymph node dissection. The lattismus dorsi muscle was identified and followed superiorly. Then proceeded with identification of the axillary vein followed by identification of the thoracodorsal bundle and long thoracic nerve. Axillary lymph nodes were then removed from the above boundaries with the aid of the bovie cautery and sweeping -like motion and then sent to pathology. Minimal fat was noted within the axilla. Both nerves were identified and unharmed. Hemostasis was noted. Plastic surgery then proceeded with bilateral tissue community recreation programmer placement.
[2017-08-21] MEDS ORDERED: ZEMURON IV ONE (09:00)
[2017-08-21] MEDS ORDERED: ZOFRAN ONE (09:01)
[2017-08-21] MEDS ORDERED: XYLOCAINE MPF 2% ONE (09:01)
[2017-08-21] MEDS ORDERED: DECADRON ONE (09:01)
[2017-08-21] MEDS ORDERED: NACL 0.9% 100 ML ONE (09:02)
[2017-08-21] MEDS ORDERED: NEO SYNEPHRINE ONE (09:02)
[2017-08-21] MEDS ORDERED: VANCOMYCIN VIAL ONE (10:40)
[2017-08-21] MEDS ORDERED: BACITRACIN IR ONE (12:04)
[2017-08-21] MEDS ORDERED: VANCOMYCIN VIAL IRRIGATION ONE (12:06)
[2017-08-21] MEDS ORDERED: NACL 0.9% 1000 ML IR ONE ×2 (12:07)
[2017-08-21] MEDS ORDERED: GARAMYCIN IV ONE (12:07)
[2017-08-21] MEDS ORDERED: METHYLENE BLUE IRRIGATION ONE (13:34)
[2017-08-21] MEDS ORDERED: SODIUM CHLORIDE FLUSH SYRINGE 10 ML IV PRN (13:41)
[2017-08-21] MEDS ORDERED: TYLENOL PO PRN (13:41)
[2017-08-21] MEDS ORDERED: REGLAN PO PRN (13:41)
[2017-08-21] MEDS ORDERED: PERCOCET 5/325 PO PRN (13:41)
[2017-08-21] MEDS ORDERED: BENADRYL PO PRN (13:41)
--- NOTE | 2017-08-21 13:45 | Post Operative Note ---
Pre-op diagnosis: right breast cancer Findings: bilateral mastectomy defects Procedure: bilateral breast reconstruction with tissue expanders and biologic mesh Anesthesia: NATALIYA Surgeon: ALVARO STEIN Estimated blood loss: minimal Pathology: none Condition: stable Disposition: PACU
[2017-08-21] MEDS: DILAUDID IV PRN ×2 (13:50→14:00)
[2017-08-21] MEDS ORDERED: LACTATED RINGERS 1,000 ML IV SCH (14:00)
[2017-08-21] MEDS ORDERED: CLEOCIN 600 MG/50 mL 600 MG/50 ML BAG IV SCH ×2 (14:00→16:00)
--- NOTE | 2017-08-21 14:09 | Post Anesthesia Evaluation ---
- Post Anesthesia Evaluation Patient Participated: Yes Airway Patent: Yes Stable Respiratory Function: Yes Nausea/Vomiting: No Temp > 96.8F: Yes Pain Manageable: Yes Adequeate Hydration: Yes Anesthesia Complications: No Block Receding Appropriately: No (single shot bilateral PECII blocks should continue to work for several hours) Patient on Ventilator: No
[2017-08-21] MEDS: LACTATED RINGERS 1,000 ML IV SCH (17:43)
[2017-08-21] MEDS: CLEOCIN 600 MG/50 mL 600 MG/50 ML BAG IV SCH (20:41)
[2017-08-21] MEDS: COLACE PO SCH (20:49)
[2017-08-21] MEDS ORDERED: PNEUMOVAX 23 IM ONE (20:52)
[2017-08-21] MEDS: PERCOCET 5/325 PO PRN (23:09)
--- NOTE | 2017-08-21 23:13 | Operative Report ---
PREOPERATIVE DIAGNOSIS: Right-sided breast cancer. POSTOPERATIVE DIAGNOSIS: Right-sided breast cancer. PROCEDURE: 1. Immediate bilateral breast reconstruction with tissue expanders, CPT code 17801-52. 2. Bilateral breast reconstruction utilizing implantation of biological mesh, FlexHD CPT code 68730-86. 3. Application of negative pressure wound VAC device, LIZZIE, to bilateral breasts for postoperative healing, post-CPT code 70596-43. SURGEON: Tor Easton MD IRRIGATION SYSTEM INSTALLER: None. ANESTHESIA: General. OPERATIVE INDICATIONS: This is a 67-year-old female with a history of right-sided breast cancer. I saw her in consultation and she was deciding to undergo bilateral mastectomies and desired reconstruction. We discussed all the options for her and elected to proceed with bilateral tissue director clinical information services reconstruction followed by implant and exchange to implants. Risks and benefits of surgery were discussed. The patient signed a consent and agreed. OPERATIVE DETAILS: The patient was brought to the operating room and placed supine on the operating room table. Preoperative antibiotics and general anesthesia were administered. The patient was prepped and draped in the usual sterile fashion. Timeout was called verifying the name of the patient, operation being performed. Dr. García began her portion of the operation and completed the bilateral mastectomies and the right lymph node dissection. I came into the room at that point and scrubbed in, assessed the defects and measured her chest wall to decide on the appropriate tissue expanders. We then began with the dissection, starting on the left side I created a subpectoral pocket, irrigated with antibiotic irrigation and then took a piece of FlexHD, pliable perforated and on the left side, we implanted that with serial #[id number]. The FlexHD was sewn to the inframammary fold and lateral breast border with 2-0 Vicryl sutures. We then took a Pickford Artoura high profile 475 mL tissue director clinical information services with serial #[id number] and placed in the subpectoral pocket. We then secured it using the suture tabs and then closed the pectoralis major muscle to the FlexHD using a running 2-0 Vicryl suture. All of the air had been sucked out of the director clinical information services prior to placing it in the pocket. At this point, we accessed the port and placed 200 mL of fluid into the director clinical information services. We then placed a 19-English and 15-English Terry drain into the space in the prepectoral space and then began with closure, I used a 2-0 Monocryl V-Loc barbed suture to close the skin. I then turned my attention to the right side. The exact same procedure was performed on the right, to summarize subpectoral pocket was created and then a Pickford Artoura high profile implant was placed in the subpectoral pocket and secured using a piece of FlexHD to the inframammary fold and lateral breast border. The serial number on the FlexHD was [id number] and serial number on the director clinical information services is [id number], this side was also insufflated to 200 mL of saline. A 19-English Terry drain and 15-English Terry drain were inserted and secured in place. The skin was closed using 2-0 Monocryl V-Loc. To prevent postoperative wound complications, we applied a LIZZIE negative pressure wound VAC device to both breasts, achieved good seal. The patient tolerated the procedure well. She was awakened from general anesthesia, transferred to the PACU in stable condition. ESTIMATED BLOOD LOSS: Less than 50 mL. SPECIMENS: None. FINDINGS: Bilateral mastectomy defects. JOB# [id number] DENIA/GUERO
[2017-08-22] MEDS: COLACE PO SCH (00:38)
[2017-08-22] MEDS: LACTATED RINGERS 1,000 ML IV SCH (04:40)
[2017-08-22] MEDS: CLEOCIN 600 MG/50 mL 600 MG/50 ML BAG IV SCH (05:01)
[2017-08-22] MEDS: PERCOCET 5/325 PO PRN ×2 (05:02→15:24)
--- NOTE | 2017-08-22 11:51 | Discharge Summary ---
Providers - Providers Date of Admission: 08/21/17 13:41 Date of discharge: 08/22/17 Attending physician: BELIA CONSTANTINO Primary care physician: MEET OGDEN Hospitalization Reason for admission: pain control Procedures: bilateral mastectomy and affiliate marketing manager reconstruction Hospital course: admitted for observation and pain control. Did well on just PO pain meds. Ambulating, tolerating POs, plan for discharge later this evening. Disposition: - TO HOME OR SELFCARE Core Measure Documentation - Palliative Care Palliative Care/ Comfort Measures: Not Applicable - Core Measures Any of the following diagnoses?: none Exam - Physical Exam Narrative exam: NAD, AAOx3, rates pain a 4-6/10 Breasts: no hematoma. PICOs intact and no blood staining. Drains are serosang. Expanders inflated and in good position. - Constitutional Vitals: Temp Pulse Resp BP Pulse Ox 98.3 F 14 L 14 121/63 96 08/22/17 09:44 08/22/17 09:44 08/22/17 09:44 08/22/17 09:44 08/22/17 09:44 Plan Activity: other (no lifting greater than 5 lbs, no strenous activity) Weight Bearing Status: Full Weight Bearing Diet: regular Wound: keep clean and dry Follow up with: BELIA CONSTANTINO MD [Staff Physician] - 7 Days MEET OGDEN MD [Primary Care Provider] - 7 Days ALVARO STEIN MD [Staff Physician] - 7 Days
[2017-08-22 16:56] VITALS: BP 138/60
== END 2017-08-22 16:15 | disposition home or self-care (01) ==
LOC: OR 06:04 → OB 13:41
PROVIDERS: ADMIT Surgery; ATTEND Surgery
DX: C50.411 Malignant neoplasm of upper-outer quadrant of right female breast (principal); I10 Essential (primary) hypertension; I25.2 Old myocardial infarction; J45.909 Unspecified asthma, uncomplicated; I25.10 Atherosclerotic heart disease of native coronary artery without angina pectoris; M10.9 Gout, unspecified; Z92.21 Personal history of antineoplastic chemotherapy; Z87.891 Personal history of nicotine dependence
CPT/HCPCS: 15777; 19303; 19357; 38745; 78800; 88305; 88307; 88331; 88333; 96365; 96367; 96375; 97607; A9541; C1789; G0378; J1100; J1170; J2250; J2370; J2405; J2704; J2795; J3010; J3370; J7030; J7120; Q4128; Q9968; 90732; J1580

== ENCOUNTER 2018-07-16 12:14 | Outpatient (CLI) | payer BC, MEDICARE ==
--- NOTE | 2018-07-16 15:54 | Mammography Report ---
BONE DEXA:07/16/18 12:14:00 CLINICAL: Possible and history of right upper outer breast cancer. On aromatase inhibitor. No comparison. TECHNIQUE: Two site bone DEXA performed on an Hologic scanner. FINDINGS: The average BMD of the left forearm is 0.590g/cm squared with a T-score of +0.5 and a Z-score of +2.7. The average BMD of the left hip is 0.983g/cm squared with a T-score of -0.3 and a Z-score of +0.8. The left femoral neck BMD is 0.705g/cm squared this T score of -1.7 and a Z score of -0.3 IMPRESSION: 1. WHO classification: Normal with average fracture risk based on left forearm measurements. 2. WHO classification: Osteopenia with increased fracture risk based on left hip measurements. RECOMMENDATION: Clinical correlation and routine screening. DEFINITIONS: BMD = Bone Mineral Density T-score = BMD related to mean peak bone mass of young adult (mean expressed in Standard Deviation) Z-score = Age matched BMD expressed in SD World Health Organization (WHO) Diagnostic Criteria Normal T-score > -1 SD Osteopenia T-score between -1 and -2.4 SD Osteoporosis T-score -2.5 SD or below NOTE: BMD is not the only risk factor for fracture. One should also consider factors such as the patient's age, risk of falling, previous osteoporotic fracture, family history of osteoporotic fractures, current smoker, and low body weight. Z-scores are not calculated if >80 years of age.
== END 2018-07-16 12:15 | disposition home or self-care (01) ==
LOC: SPVWC 12:14
PROVIDERS: ATTEND Internal Medicine Hematology & Oncology
DX: C50.411 Malignant neoplasm of upper-outer quadrant of right female breast (principal); J06.9 Acute upper respiratory infection, unspecified; G47.00 Insomnia, unspecified; T82.598A Other mechanical complication of other cardiac and vascular devices and implants, initial encounter; F17.200 Nicotine dependence, unspecified, uncomplicated; E78.00 Pure hypercholesterolemia, unspecified; I10 Essential (primary) hypertension; K21.9 Gastro-esophageal reflux disease without esophagitis; Z79.811 Long term (current) use of aromatase inhibitors
CPT/HCPCS: 77080

== ENCOUNTER 2019-09-16 15:12 | Emergency (ER) | payer BC, MEDICARE ==
[2019-09-16 15:57] LABS: Basophils % (Auto) 0.4 % (0.0-1.8); Eosinophils % (Auto) 0.1 % (0.0-4.3); Hematocrit 21.8 % (30.3-42.9); Hemoglobin 6.6 gm/dl (10.1-14.3); Lymphocytes # (Auto) 0.5 K/mm3 (1.2-5.4); Lymphocytes % (Auto) 11.8 % (13.4-35.0); Mean Corpuscular HGB Conc 31 % (30-34); Mean Corpuscular Volume 76 fl (79-97); Monocytes # (Auto) 0.2 K/mm3 (0.0-0.8); Monocytes % (Auto) 4.2 % (0.0-7.3); Platelet Count 179 K/mm3 (140-440); Red Blood Count 2.86 M/mm3 (3.65-5.03)
[2019-09-16 15:59] LABS: Red Cell Distribution Width 22.5 % (13.2-15.2)
[2019-09-16 16:18] LABS: Albumin 3.9 g/dL (3.9-5); Calcium 8.9 mg/dL (8.4-10.2)
[2019-09-16] MEDS ORDERED: SODIUM CHLORIDE 0.9% 500 ML 500 ML IV ONE (18:01)
--- NOTE | 2019-09-16 18:31 | Emergency Department Report ---
ED General Adult HPI - General Chief complaint: Recheck/Abnormal Lab/Rx Stated complaint: LOWER BLOOD COUNT Time Seen by Provider: 09/16/19 17:59 Source: patient Mode of arrival: Ambulatory Limitations: No Limitations - History of Present Illness Initial comments: Patient is a 69-year-old F [place] Citizen female with past medical history of GERD breast cancer and coronary artery disease who is presenting with weakness for the past 3 weeks. Patient states she is fatigued and gets short of breath with exertion. States she has had some mild leg swelling as well.. Patient is denying any vaginal bleeding or rectal bleeding that she knows of. She states t hat she did have some mild nosebleed last night. Patient had blood work done yesterday and she was called to come to the emergency department today because of a low hemoglobin. Severity scale (0 -10): 6 - Related Data Home Medications Medication Instructions Recorded Confirmed Last Taken Losartan/Hydrochlorothiazide 1 tab PO QDAY 01/28/17 08/21/17 08/21/17 04:00 [Hyzaar 100-25 TAB] Aspirin [Aspir-Low] 81 mg PO DAILY 08/10/17 08/21/17 08/20/17 Sertraline [Zoloft] 50 mg PO DAILY 08/10/17 08/21/17 08/20/17 Previous Rx's Medication Instructions Recorded Last Taken Type Ibuprofen [Motrin 600 MG tab] 600 mg PO Q8H PRN #20 tablet 12/04/15 08/14/17 Rx HYDROcodone/APAP 5-325 [[place] 1 each PO Q6HR PRN #30 tablet 01/28/17 08/09/17 Rx 5/325] Allergies Allergy/AdvReac Type Severity Reaction Status Date / Time Penicillins Allergy Swelling Verified 09/16/19 15:13 ED Review of Systems ROS: Stated complaint: LOWER BLOOD COUNT Other details as noted in HPI Comment: All other systems reviewed and negative ED Past Medical Hx - Past Medical History Hx Hypertension: Yes (2006) Hx Heart Attack/AMI: Yes (2014 (X2)) Hx GERD: Yes Hx of Cancer: Yes Hx Asthma: Yes (seasonal allergies) Hx HIV: No - Surgical History Additional Surgical History: back surgery - Social History Smoking Status: Current Every Day Smoker Substance Use Type: None - Medications Home Medications: Home Medications Medication Instructions Recorded Confirmed Last Taken Type Ibuprofen [Motrin 600 MG tab] 600 mg PO Q8H PRN #20 tablet 12/04/15 08/21/17 08/14/17 Rx HYDROcodone/APAP 5-325 [[place] 1 each PO Q6HR PRN #30 tablet 01/28/17 08/21/17 08/09/17 Rx 5/325] Losartan/Hydrochlorothiazide 1 tab PO QDAY 01/28/17 08/21/17 08/21/17 04:00 History [Hyzaar 100-25 TAB] Aspirin [Aspir-Low] 81 mg PO DAILY 08/10/17 08/21/17 08/20/17 History Sertraline [Zoloft] 50 mg PO DAILY 08/10/17 08/21/17 08/20/17 History ED Physical Exam - General Limitations: No Limitations General appearance: alert, in no apparent distress - Head Head exam: Present: atraumatic, normocephalic - Eye Eye exam: Present: normal appearance - ENT ENT exam: Present: mucous membranes moist - Neck Neck exam: Present: normal inspection - Respiratory Respiratory exam: Present: normal lung sounds bilaterally. Absent: respiratory distress, wheezes, rales, rhonchi - Cardiovascular Cardiovascular Exam: Present: regular rate, normal rhythm, normal heart sounds. Absent: systolic murmur, diastolic murmur, rubs, gallop - GI/Abdominal GI/Abdominal exam: Present: soft, normal bowel sounds. Absent: distended, tenderness, guarding, rebound - Rectal Rectal exam: Present: normal inspection, normal rectal tone, heme (-) stool - Extremities Exam Extremities exam: Present: normal inspection - Back Exam Back exam: Present: normal inspection - Neurological Exam Neurological exam: Present: alert, oriented X3 - Psychiatric Psychiatric exam: Present: normal affect, normal mood - Skin Skin exam: Present: warm, dry, intact, normal color. Absent: rash ED Course Vital Signs 09/16/19 15:19 Temperature 99.2 F Pulse Rate 64 Respiratory 18 Rate Blood Pressure 151/66 [Left] O2 Sat by Pulse 98 Oximetry ED Medical Decision Making - Lab Data Result diagrams: 09/16/19 15:29 09/16/19 15:29 - Medical Decision Making Patient will be transfused and Critical Care Time: Yes (30) Critical care attestation.: If time is entered above; I have spent that time in minutes in the direct care of this critically ill patient, excluding procedure time. ED Disposition Clinical Impression: Symptomatic anemia Disposition: DC-09 OP ADMIT IP TO THIS HOSP Is pt being admited?: Yes Does the pt Need Aspirin: No Condition: Stable Time of Disposition: 18:31
[2019-09-16] MEDS ORDERED: amLODIPine 5 MG TAB PO ONE (19:14)
[2019-09-16] MEDS ORDERED: amLODIPine 5 MG TAB ONE (19:17)
[2019-09-16 20:47] LABS: Hematocrit 26.2 % (30.3-42.9); Hemoglobin 8.1 gm/dl (10.1-14.3)
[2019-09-16 21:25] VITALS: BP 163/59
== END 2019-09-16 21:33 | disposition home or self-care (01) ==
LOC: ED 15:12 → IMCU 18:31 → UNDOADMOB 18:31 → ED 21:33
DX: D64.9 Anemia, unspecified (principal); I10 Essential (primary) hypertension; I25.2 Old myocardial infarction; K21.9 Gastro-esophageal reflux disease without esophagitis; J45.909 Unspecified asthma, uncomplicated; F17.200 Nicotine dependence, unspecified, uncomplicated; Z98.890 Other specified postprocedural states; Z79.1 Long term (current) use of non-steroidal anti-inflammatories (NSAID); Z79.899 Other long term (current) drug therapy; Z88.0 Allergy status to penicillin
CPT/HCPCS: 36415; 36430; 80053; 84484; 85014; 85018; 85025; 86850; 86900; 86901; 86920; 99284; J7040; P9016; 93005